=== PATIENT | male | born 1990 | race American Indian/Alaskan Native ===

== ENCOUNTER 2017-06-03 02:56 | Emergency (ER) | payer OTHER ==
[2017-06-03 03:50] VITALS: BP 119/70
[2017-06-03] MEDS ORDERED: DUONEB *Not for PRN Use IH ONE (03:50)
[2017-06-03] MEDS ORDERED: NACL 0.9% 1000 ML 1,000 ML IV ONE (04:17)
--- NOTE | 2017-06-03 04:34 | Emergency Department Report ---
ED Asthma HPI - General Chief Complaint: Adult Asthma Stated Complaint: ASTHMA Time Seen by Provider: 06/03/17 04:18 Source: patient Mode of arrival: Ambulatory Limitations: No Limitations - History of Present Illness Initial Comments: This is a 27-year-old male alert and oriented 3 nontoxic, well nourished in appearance, no acute signs of distress presents to the ED with c/o of wheezing x1 day. Patient has medical history of asthma. Patient stated all his medication is in the car where his car has been repossessed today. Patient denies any chest pain, shortness of breathe, fever, chills, headache, nausea, vomiting, calf pain, calf tenderness, cough. Patient denies smoking. Patient states his baseline peak flow was about 340. MD Complaint: wheezing, other (medication refill) -: Gradual, days(s) (1) Asthma History: childhood onset Severity: mild Context: none known Associated Symptoms: none - Related Data Current Asthma Therapy: inhaled bronchodilator, inhaled steroid Previous Rx's Medication Instructions Recorded Last Taken Type ALBUTEROL NEB's [Proventil 0.083% 2.5 mg IH Q4H PRN #1 box 04/20/17 Unknown Rx NEBS] Albuterol Sulfate [Ventolin Hfa] 1 puff IH Q4H PRN #1 hfa.aer.ad 04/20/17 Unknown Rx Fluticasone Propionate [Flovent 1 puff IH BID #1 disk.w.dev 04/20/17 Unknown Rx Diskus] Fluticasone/Salmeterol [Advair 1 each INHALATION BID #1 blst.w.dev 04/20/17 Unknown Rx 250-50 Diskus] predniSONE [Deltasone] 40 mg PO QDAY #10 tablet 04/20/17 Unknown Rx ALBUTEROL Inhaler [ProAir HFA 2 puff IH QID PRN #1 inhalation 06/03/17 Unknown Rx Inhaler] ALBUTEROL NEB's [Proventil 0.083% 2.5 mg IH TID PRN #30 neb 06/03/17 Unknown Rx NEBS] predniSONE [Deltasone] 40 mg PO QDAY #5 tab 06/03/17 Unknown Rx Allergies Allergy/AdvReac Type Severity Reaction Status Date / Time egg Allergy Shortness Verified 04/20/17 13:01 of Breath ED Review of Systems ROS: Stated complaint: ASTHMA Other details as noted in HPI Constitutional: denies: chills, fever Eyes: denies: eye pain, eye discharge, vision change ENT: denies: ear pain, throat pain Respiratory: wheezing. denies: cough, shortness of breath Cardiovascular: denies: chest pain, palpitations Endocrine: no symptoms reported Gastrointestinal: denies: abdominal pain, nausea, diarrhea Genitourinary: denies: urgency, dysuria Musculoskeletal: denies: back pain, joint swelling, arthralgia Skin: denies: rash, lesions Neurological: denies: headache, weakness, paresthesias Psychiatric: denies: anxiety, depression Hematological/Lymphatic: denies: easy bleeding, easy bruising ED Past Medical Hx - Past Medical History Hx Seizures: Yes Hx Asthma: Yes (intubated 07/06) - Surgical History Additional Surgical History: hernia repair - Social History Smoking Status: Never Smoker Substance Use Type: None - Medications Home Medications: Home Medications Medication Instructions Recorded Confirmed Last Taken Type ALBUTEROL NEB's [Proventil 0.083% 2.5 mg IH Q4H PRN #1 box 04/20/17 Unknown Rx NEBS] Albuterol Sulfate [Ventolin Hfa] 1 puff IH Q4H PRN #1 hfa.aer.ad 04/20/17 Unknown Rx Fluticasone Propionate [Flovent 1 puff IH BID #1 disk.w.dev 04/20/17 Unknown Rx Diskus] Fluticasone/Salmeterol [Advair 1 each INHALATION BID #1 blst.w.dev 04/20/17 Unknown Rx 250-50 Diskus] predniSONE [Deltasone] 40 mg PO QDAY #10 tablet 04/20/17 Unknown Rx ALBUTEROL Inhaler [ProAir HFA 2 puff IH QID PRN #1 inhalation 06/03/17 Unknown Rx Inhaler] ALBUTEROL NEB's [Proventil 0.083% 2.5 mg IH TID PRN #30 neb 06/03/17 Unknown Rx NEBS] predniSONE [Deltasone] 40 mg PO QDAY #5 tab 06/03/17 Unknown Rx ED Physical Exam - General Limitations: No Limitations General appearance: alert, in no apparent distress - Head Head exam: Present: atraumatic, normocephalic, normal inspection - Eye Eye exam: Present: normal appearance, PERRL, EOMI. Absent: scleral icterus, conjunctival injection, nystagmus, periorbital swelling, periorbital tenderness Pupils: Present: normal accommodation - ENT ENT exam: Present: normal exam, normal orophraynx, mucous membranes moist, TM's normal bilaterally, normal external ear exam - Neck Neck exam: Present: normal inspection, full ROM. Absent: tenderness, meningismus, lymphadenopathy, thyromegaly - Respiratory Respiratory exam: Present: normal lung sounds bilaterally. Absent: respiratory distress, wheezes, rales, rhonchi, stridor, chest wall tenderness, accessory muscle use, decreased breath sounds, prolonged expiratory - Cardiovascular Cardiovascular Exam: Present: regular rate, normal rhythm, normal heart sounds. Absent: bradycardia, tachycardia, irregular rhythm, systolic murmur, diastolic murmur, rubs, gallop - GI/Abdominal GI/Abdominal exam: Present: soft, normal bowel sounds. Absent: distended, tenderness, guarding, rebound, rigid, diminished bowel sounds - Rectal Rectal exam: Present: deferred - Extremities Exam Extremities exam: Present: normal inspection, full ROM, normal capillary refill. Absent: tenderness, pedal edema, joint swelling, calf tenderness - Back Exam Back exam: Present: normal inspection, full ROM. Absent: tenderness, CVA tenderness (R), CVA tenderness (L), muscle spasm, paraspinal tenderness, vertebral tenderness, rash noted - Neurological Exam Neurological exam: Present: alert, oriented X3, CN II-XII intact, normal gait, reflexes normal - Psychiatric Psychiatric exam: Present: normal affect, normal mood - Skin Skin exam: Present: warm, dry, intact, normal color. Absent: rash ED Course Vital Signs 06/03/17 03:44 Temperature 98.2 F Pulse Rate 90 Respiratory 20 Rate Blood Pressure 119/70 O2 Sat by Pulse 97 Oximetry - Reevaluation(s) Reevaluation #1: 06/03/17 04:45 Patient is speaking in full sentences with no signs of distress noted. ED Medical Decision Making - Medical Decision Making This is a 27-year-old a/ox3 that presents with medication refill and asthma exacerbation. Patient speaking in full sentences with no signs of distress. Patient received one nebulizer DuoNeb since arriving to the ED prior to intubated patient. Symptoms of wheezing has subsided upon auscultation during my visit. No visual retractions noted. Patient received Solu-Medrol 125 milligrams IV in the ED. patient is discharged with albuterol nebulizer, albuterol inhaler, and prednisone. He was instructed Follow-up with a primary care doctor in 3-5 days or if symptoms worsen and continue return to emergency room as soon as possible. At time time of discharge, the patient does not seem toxic or ill in appearance. No acute signs of distress noted. Patient agrees to discharge treatment plan of care. No further questions noted by the patient. Critical care attestation.: If time is entered above; I have spent that time in minutes in the direct care of this critically ill patient, excluding procedure time. ED Disposition Clinical Impression: Medication refill Asthma exacerbation Qualifiers: Asthma severity: mild Asthma persistence: unspecified Qualified Code(s): J45.901 - Unspecified asthma with (acute) exacerbation Disposition: DC- TO HOME OR SELFCARE Is pt being admited?: No Does the pt Need Aspirin: No Condition: Stable Instructions: Asthma (ED) Additional Instructions: Follow-up with a primary care doctor in 3-5 days or if symptoms worsen and continue return to emergency room as soon as possible. Prescriptions: ALBUTEROL Inhaler [ProAir HFA Inhaler] 2 puff IH QID PRN #1 inhalation PRN Reason: Shortness Of Breath ALBUTEROL NEB's [Proventil 0.083% NEBS] 2.5 mg IH TID PRN #30 neb PRN Reason: Wheezing predniSONE [Deltasone] 40 mg PO QDAY #5 tab Referrals: MATTHEW TODD MD [Primary Care Provider] - 3-5 Days [facility] [Outside] - 3-5 Days OSMANI CANTOR MD [Staff Physician] - 3-5 Days [facility] [Outside] - 3-5 Days Forms: Work/School Release Form(ED)
--- NOTE | 2017-06-03 04:46 | XRay Report ---
FINAL REPORT EXAM: XR CHEST ROUTINE 2V HISTORY: wheezing TECHNIQUE: PA and lateral chest radiographs PRIORS: None. FINDINGS: No mediastinal shift. Cardiac silhouette is not enlarged. No pneumothorax, effusion, or focal pulmonary opacity. No acute skeletal finding. IMPRESSION: No focal pulmonary opacity.
== END 2017-06-03 05:16 | disposition home or self-care (01) ==
LOC: ED 02:56
DX: J45.901 Unspecified asthma with (acute) exacerbation (principal); Z91.012 Allergy to eggs
CPT/HCPCS: 71020; 96361; 96374; 99283; J2930; J7030

== ENCOUNTER 2017-06-24 13:23 | Emergency (ER) | payer OTHER ==
[2017-06-24] MEDS ORDERED: PROVENTIL IH ONE (13:55)
[2017-06-24] MEDS ORDERED: ATROVENT IH ONE (13:55)
[2017-06-24] MEDS ORDERED: MAGNESIUM SULFATE 2GM/50ML 2 GM/50 ML BAG IV ONE (13:55)
--- NOTE | 2017-06-24 14:52 | XRay Report ---
Single view chest: Compared to 06/03/17. History: Shortness of breath. Findings: Normal cardiomediastinal silhouette the trachea is midline. No consolidation, pneumothorax or pleural effusion. Impression: No acute cardiopulmonary findings.
--- NOTE | 2017-06-24 15:06 | Emergency Department Report ---
ED Asthma HPI - General Chief Complaint: Adult Asthma Stated Complaint: ASTHMA ATTACK Time Seen by Provider: 06/24/17 13:55 Source: patient Mode of arrival: Ambulatory Limitations: No Limitations - History of Present Illness Initial Comments: 27-year-old male with a past medical history asthma with intubation in June 2016, and seizures presents to the hospital with shortness of breath and cough productive of yellow sputum since yesterday. No reports of fever. Patient presents tachypneic with some respiratory distress. 8/10 constant chest tightness reported with associated wheezing. - Related Data Previous Rx's Medication Instructions Recorded Last Taken Type Albuterol Sulfate [Ventolin Hfa] 1 puff IH Q4H PRN #1 hfa.aer.ad 04/20/17 Unknown Rx Fluticasone Propionate [Flovent 1 puff IH BID #1 disk.w.dev 04/20/17 Unknown Rx Diskus] Fluticasone/Salmeterol [Advair 1 each INHALATION BID #1 blst.w.dev 04/20/17 Unknown Rx 250-50 Diskus] ALBUTEROL NEB's [Proventil 0.083% 2.5 mg IH TID PRN #30 neb 06/03/17 Unknown Rx NEBS] predniSONE [Deltasone] 40 mg PO QDAY #5 tab 06/03/17 Unknown Rx ALBUTEROL Inhaler [ProAir HFA 2 puff IH QID PRN #1 inhalation 06/24/17 Unknown Rx Inhaler] ALBUTEROL NEB's [Proventil 0.083% 2.5 mg IH Q4H PRN #1 box 06/24/17 Unknown Rx NEBS] Azithromycin [Zithromax Z-DEYA] 1 dose PO DAILY 5 Days tab 06/24/17 Unknown Rx predniSONE [Deltasone] 40 mg PO QDAY 5 Days tablet 06/24/17 Unknown Rx Allergies Allergy/AdvReac Type Severity Reaction Status Date / Time egg Allergy Shortness Verified 04/20/17 13:01 of Breath ED Review of Systems ROS: Stated complaint: ASTHMA ATTACK Other details as noted in HPI Comment: All other systems reviewed and negative Other: Constitutional: No fevers chills Eyes: No eye pain visual changes ENT: No ear pain or throat pain Neck: Denies pain Respiratory: As per HPI Cardiovascular: Denies palpitations, syncope GI: Denies abdominal pain : Denies dysuria Musculoskeletal: Denies back pain Skin: Denies rash, lesions, erythema Neurologic: Denies headache, numbness, weakness Psychiatric: Denies suicidal ideation, hallucinations ED Past Medical Hx - Past Medical History Previous Medical History?: Yes Hx Seizures: Yes Hx Asthma: Yes (intubated 07/06) - Surgical History Past Surgical History?: Yes Additional Surgical History: hernia repair - Social History Smoking Status: Never Smoker Substance Use Type: None - Medications Home Medications: Home Medications Medication Instructions Recorded Confirmed Last Taken Type Albuterol Sulfate [Ventolin Hfa] 1 puff IH Q4H PRN #1 hfa.aer.ad 04/20/17 Unknown Rx Fluticasone Propionate [Flovent 1 puff IH BID #1 disk.w.dev 04/20/17 Unknown Rx Diskus] Fluticasone/Salmeterol [Advair 1 each INHALATION BID #1 blst.w.dev 04/20/17 Unknown Rx 250-50 Diskus] ALBUTEROL NEB's [Proventil 0.083% 2.5 mg IH TID PRN #30 neb 06/03/17 Unknown Rx NEBS] predniSONE [Deltasone] 40 mg PO QDAY #5 tab 06/03/17 Unknown Rx ALBUTEROL Inhaler [ProAir HFA 2 puff IH QID PRN #1 inhalation 06/24/17 Unknown Rx Inhaler] ALBUTEROL NEB's [Proventil 0.083% 2.5 mg IH Q4H PRN #1 box 06/24/17 Unknown Rx NEBS] Azithromycin [Zithromax Z-DEYA] 1 dose PO DAILY 5 Days tab 06/24/17 Unknown Rx predniSONE [Deltasone] 40 mg PO QDAY 5 Days tablet 06/24/17 Unknown Rx ED Physical Exam - General Limitations: No Limitations - Other Other exam information: General: No limitations, patient is alert in no acute distress Head exam: Atraumatic, normocephalic Eyes exam: Normal appearance ENT: Moist mucous membrane, normal oropharynx Neck exam: Normal inspection, full range of motion, no meningismus nontender Respiratory exam: Tachypnea, sensory muscle use, poor air movement with wheezing. Cardiovascular: Tachycardic regular rhythm Abdomen: Soft, nondistended, and nontender, with normal bowel sounds, no rebound, or guarding Extremity: Full range of motion normal inspection no deformity Back: Normal Inspection, full range of motion, no tenderness Neurologic: Alert, oriented x3, cranial nerves intact, no motor or sensory deficit Psychiatric: normal affect, normal mood Skin: Warm, dry, intact ED Course Vital Signs 06/24/17 06/24/17 06/24/17 13:41 14:07 14:24 Temperature 98.4 F Pulse Rate 125 H Pulse Rate [ 128 H 130 H Bilateral Upper Lobe] Respiratory 30 H Rate Respiratory 24 24 Rate [Bilateral Upper Lobe] Blood Pressure 125/70 O2 Sat by Pulse 93 Oximetry 06/24/17 06/24/17 16:16 16:26 Temperature Pulse Rate Pulse Rate [ 102 H 105 H Bilateral Upper Lobe] Respiratory Rate Respiratory 20 20 Rate [Bilateral Upper Lobe] Blood Pressure O2 Sat by Pulse Oximetry - Reevaluation(s) Reevaluation #1: 06/24/17 17:59 Patient feeling much better after second round and treatment. While he sleeping his pulse ox was 98% saturation on room air and heart rate 100. ED Medical Decision Making - Lab Data Result diagrams: 06/24/17 15:41 06/24/17 15:41 Lab Results 06/24/17 06/24/17 Range/Units 15:41 15:41 WBC 8.2 (4.5-11.0) K/mm3 RBC 5.45 H (3.65-5.03) M/mm3 Hgb 14.9 (11.8-15.2) gm/dl Hct 45.3 (35.5-45.6) % MCV 83 L (84-94) fl MCH 27 L (28-32) pg MCHC 33 (32-34) % RDW 15.2 (13.2-15.2) % Plt Count 243 (140-440) K/mm3 Lymph % (Auto) 9.1 L (13.4-35.0) % [place] % (Auto) 3.0 (0.0-7.3) % Eos % (Auto) 2.2 (0.0-4.3) % Baso % (Auto) 0.3 (0.0-1.8) % Lymph # 0.7 L (1.2-5.4) K/mm3 [place] # 0.2 (0.0-0.8) K/mm3 Eos # 0.2 (0.0-0.4) K/mm3 Baso # 0.0 (0.0-0.1) K/mm3 Seg Neutrophils % 85.4 H (40.0-70.0) % Seg Neutrophils # 7.0 (1.8-7.7) K/mm3 Sodium 143 (137-145) mmol/L Potassium 4.2 (3.6-5.0) mmol/L Chloride 100.8 (98-107) mmol/L Carbon Dioxide 26 (22-30) mmol/L Anion Gap 20 mmol/L BUN 11 (9-20) mg/dL Creatinine 1.0 (0.8-1.5) mg/dL Estimated GFR > 60 ml/min BUN/Creatinine Ratio 11 % Glucose 105 H (75-100) mg/dL Calcium 9.1 (8.4-10.2) mg/dL - Radiology Data Radiology results: report reviewed Chest x-ray read by radiologist: no acute findings - Medical Decision Making Patient feeling much better with ED treatment. We'll treat for acute bronchitis /asthma - Differential Diagnosis asthma, pneumonia, bronchitis Critical Care Time: No Critical care attestation.: If time is entered above; I have spent that time in minutes in the direct care of this critically ill patient, excluding procedure time. ED Disposition Clinical Impression: Acute asthmatic bronchitis Disposition: - TO HOME OR SELFCARE Is pt being admited?: No Does the pt Need Aspirin: No Condition: Stable Instructions: Acute Bronchitis (ED), Asthma (ED) Additional Instructions: Take the medication as prescribed. Use that good RX card to make your medication more affordable. Return is symptoms worsen Prescriptions: ALBUTEROL Inhaler [ProAir HFA Inhaler] 2 puff IH QID PRN #1 inhalation PRN Reason: Shortness Of Breath ALBUTEROL NEB's [Proventil 0.083% NEBS] 2.5 mg IH Q4H PRN #1 box PRN Reason: Wheezing Azithromycin [Zithromax Z-DEYA] 1 dose PO DAILY 5 Days tab predniSONE [Deltasone] 40 mg PO QDAY 5 Days tablet Referrals: [facility] [Provider Group] - 3-5 Days (Primary care doctor) OSMANI CHEN MD [Staff Physician] - 3-5 Days (primary care doctor) MICHELE ONTIVEROS MD [Staff Physician] - 3-5 Days (Lung specialist) Forms: Work/School Release Form(ED) Time of Disposition: 18:06
[2017-06-24 16:02] LABS: Basophils % (Auto) 0.3 % (0.0-1.8); Eosinophils # (Auto) 0.2 K/mm3 (0.0-0.4); Eosinophils % (Auto) 2.2 % (0.0-4.3); Hematocrit 45.3 % (35.5-45.6); Hemoglobin 14.9 gm/dl (11.8-15.2); Lymphocytes # (Auto) 0.7 K/mm3 (1.2-5.4); Lymphocytes % (Auto) 9.1 % (13.4-35.0); Mean Corpuscular HGB Conc 33 % (32-34); Mean Corpuscular Hemoglobin 27 pg (28-32); Mean Corpuscular Volume 83 fl (84-94); Monocytes # (Auto) 0.2 K/mm3 (0.0-0.8); Platelet Count 243 K/mm3 (140-440); Red Blood Count 5.45 M/mm3 (3.65-5.03); Red Cell Distribution Width 15.2 % (13.2-15.2)
[2017-06-24] MEDS ORDERED: XOPENEX IH ONE ×2 (16:07→16:08)
[2017-06-24 16:19] LABS: BUN/Creatinine Ratio 11; Blood Urea Nitrogen 11 mg/dL (9-20); Calcium 9.1 mg/dL (8.4-10.2); Hemolysis Index 5
[2017-06-24 18:28] VITALS: BP 123/55
== END 2017-06-24 18:28 | disposition home or self-care (01) ==
LOC: ED 13:23
DX: J20.9 Acute bronchitis, unspecified (principal); J45.909 Unspecified asthma, uncomplicated
CPT/HCPCS: 36415; 71045; 80048; 85025; 94640; 96365; 96375; 99284; J2930; J3475

== ENCOUNTER 2020-09-29 11:57 | Emergency (ER) | payer MEDICARE ==
[2020-09-29] MEDS ORDERED: IPRATROPIUM/ALBUTEROL SULFATE 3 ML AMPUL.NEB IH ONE ×2 (13:53→15:48)
[2020-09-29] MEDS ORDERED: methylPREDNISolone Sod Succinate 125 MG/2 ML INJ IM ONE (13:53)
--- NOTE | 2020-09-29 13:54 | Emergency Department Report ---
ED Asthma HPI - General Chief Complaint: Dyspnea/Respdistress Stated Complaint: ASTHMA Time Seen by Provider: 09/29/20 13:41 Source: patient Mode of arrival: Ambulatory Limitations: No Limitations - History of Present Illness Initial Comments: 30-year-old male with a past medical history of asthma presents to the ER today with complaints of flareup of his asthma. Patient states that his symptoms started about 2 days ago. He reports productive cough, wheezing, shortness of breath and chest tightness. Patient states that he has been out of his MDI for the past 2 days but he has been using his nebulizer treatments every 2 hours without much relief. He states that he uses as treatment today. He denies any runny nose, nasal congestion, fever or chills. He states that the last time he was hospitalized for his asthma was in 2019. He denies any other significant past history. MD Complaint: "asthma attack" -: Gradual (2 days ago ) - Related Data Previous Rx's Medication Instructions Recorded Last Taken Type Albuterol Sulfate [Ventolin Hfa] 1 puff IH Q4H PRN #1 hfa.aer.ad 04/20/17 Unknown Rx Fluticasone Propionate [Flovent 1 puff IH BID #1 disk.w.dev 04/20/17 Unknown Rx Diskus] Fluticasone/Salmeterol (Nf) 1 each INHALATION BID #1 blst.w.dev 04/20/17 Unknown Rx [Advair 250-50 Diskus] predniSONE [Deltasone] 40 mg PO QDAY #5 tab 06/03/17 Unknown Rx Azithromycin [Zithromax Z-DEYA] 1 dose PO DAILY 5 Days tab 06/24/17 Unknown Rx Benzonatate [Tessalon Perles] 100 mg PO Q8HR PRN #20 capsule 06/24/17 Unknown Rx predniSONE [Deltasone] 40 mg PO QDAY 5 Days tablet 06/24/17 Unknown Rx ALBUTEROL NEB's [Proventil 0.083% 2.5 mg IH TID PRN #30 neb 03/03/19 Unknown Rx NEBS] Fluticasone/Salmeterol [Advair 1 puff IH BID #1 disk.w.dev 03/03/19 Unknown Rx Diskus 250-50 mcg] ALBUTEROL NEB's [Proventil 0.083% 2.5 mg IH Q4H PRN #1 box 09/29/20 Unknown Rx NEBS] Albuterol Mdi (or & Nicu Only) 2 puff IH QID PRN #1 inhalation 09/29/20 Unknown Rx [ProAir HFA Inhaler] Montelukast [Singulair] 10 mg PO QPM #30 tablet 09/29/20 Unknown Rx predniSONE [Deltasone] 60 mg PO QDAY #15 tab 09/29/20 Unknown Rx Allergies Allergy/AdvReac Type Severity Reaction Status Date / Time egg Allergy Shortness Verified 04/20/17 13:01 of Breath ED Review of Systems ROS: Stated complaint: ASTHMA Other details as noted in HPI Comment: All other systems reviewed and negative Constitutional: denies: chills, fever Eyes: denies: eye pain, eye discharge, vision change ENT: denies: ear pain, throat pain Respiratory: cough, shortness of breath, SOB with exertion, wheezing Cardiovascular: chest pain (Chest tightness) Gastrointestinal: denies: abdominal pain, nausea, diarrhea, constipation, melena Genitourinary: denies: urgency, dysuria Musculoskeletal: denies: back pain, joint swelling, arthralgia Skin: denies: rash, lesions, change in color, change in hair/nails, pruritus Psychiatric: denies: anxiety, depression, auditory hallucinations, visual hallucinations, homicidal thoughts, suicidal thoughts Hematological/Lymphatic: denies: easy bleeding, easy bruising, swollen glands ED Past Medical Hx - Past Medical History Previous Medical History?: Yes Hx Seizures: Yes Hx Asthma: Yes (intubated 07/06) - Surgical History Past Surgical History?: Yes Additional Surgical History: hernia repair - Social History Smoking Status: Never Smoker Substance Use Type: None - Medications Home Medications: Home Medications Medication Instructions Recorded Confirmed Last Taken Type Albuterol Sulfate [Ventolin Hfa] 1 puff IH Q4H PRN #1 hfa.aer.ad 04/20/17 Unknown Rx Fluticasone Propionate [Flovent 1 puff IH BID #1 disk.w.dev 04/20/17 Unknown Rx Diskus] Fluticasone/Salmeterol (Nf) 1 each INHALATION BID #1 blst.w.dev 04/20/17 Unknown Rx [Advair 250-50 Diskus] predniSONE [Deltasone] 40 mg PO QDAY #5 tab 06/03/17 Unknown Rx Azithromycin [Zithromax Z-DEYA] 1 dose PO DAILY 5 Days tab 06/24/17 Unknown Rx Benzonatate [Tessalon Perles] 100 mg PO Q8HR PRN #20 capsule 06/24/17 Unknown Rx predniSONE [Deltasone] 40 mg PO QDAY 5 Days tablet 06/24/17 Unknown Rx ALBUTEROL NEB's [Proventil 0.083% 2.5 mg IH TID PRN #30 neb 03/03/19 Unknown Rx NEBS] Fluticasone/Salmeterol [Advair 1 puff IH BID #1 disk.w.dev 03/03/19 Unknown Rx Diskus 250-50 mcg] ALBUTEROL NEB's [Proventil 0.083% 2.5 mg IH Q4H PRN #1 box 09/29/20 Unknown Rx NEBS] Albuterol Mdi (or & Nicu Only) 2 puff IH QID PRN #1 inhalation 09/29/20 Unknown Rx [ProAir HFA Inhaler] Montelukast [Singulair] 10 mg PO QPM #30 tablet 09/29/20 Unknown Rx predniSONE [Deltasone] 60 mg PO QDAY #15 tab 09/29/20 Unknown Rx ED Physical Exam - General Limitations: No Limitations General appearance: alert, in distress (Mild respiratory distress) - Head Head exam: Present: atraumatic, normocephalic - Eye Eye exam: Present: normal appearance, PERRL, EOMI Pupils: Present: normal accommodation - ENT ENT exam: Present: normal exam, mucous membranes moist - Respiratory Respiratory exam: Present: respiratory distress (Mild), wheezes (Diffuse expiratory wheezing), decreased breath sounds. Absent: rales, rhonchi, stridor - Cardiovascular Cardiovascular Exam: Present: normal rhythm, tachycardia. Absent: systolic murmur - GI/Abdominal GI/Abdominal exam: Present: soft. Absent: distended, tenderness, guarding, rebound - Neurological Exam Neurological exam: Present: alert, oriented X3, normal gait. Absent: CN II-XII intact, motor sensory deficit - Psychiatric Psychiatric exam: Present: normal affect, normal mood - Skin Skin exam: Present: intact ED Course Vital Signs 09/29/20 09/29/20 09/29/20 12:52 14:45 16:20 Temperature 98.3 F Pulse Rate 115 H Pulse Rate [ 99 H 115 H Anterior Bilateral Throughout] Respiratory 22 Rate Respiratory 20 20 Rate [Anterior Bilateral Throughout] Blood Pressure 155/103 O2 Sat by Pulse 92 Oximetry - Reevaluation(s) Reevaluation #1: 09/29/20 15:49 Patient sitting up on the bed, drawing; he states that he does feel a little better after the first breathing treatment but he feels like he could benefit from another one. He does not appear to be in any acute distress at this time. Repeat lung exam - still wheezing but improving; environmental monitoring specialist shows a pulse ox of 96% on room air and a heart rate of 95. Repeat duoneb/mag Reevaluation #2: 09/29/20 17:28 Patient reports feeling much better after 2nd duoneb and IV mag; Patient not in any respiratory distress. He was observed wallking to bathroom in no distress. Repeat lung exam - clear to auscultation; His HR was 101 and Pulse 0x was 96 on environmental monitoring specialist. There is no indication at this time for admission. Discussed treatment plan with patient. He will be given a refill on his albuterol MDI and also his albuterol solution for his nebulizer machine and a prescription for some steroids. Patient presents understanding and agrees with plan. Patient stable at this time for d/c. ED Medical Decision Making - Lab Data Result diagrams: 09/29/20 14:06 09/29/20 14:06 Critical care attestation.: If time is entered above; I have spent that time in minutes in the direct care of this critically ill patient, excluding procedure time. ED Disposition Clinical Impression: Asthma exacerbation Disposition: DC-01 TO HOME OR SELFCARE Is pt being admited?: No Does the pt Need Aspirin: No Condition: Stable Instructions: Asthma, Adult, [id number] Additional Instructions: Use the albuterol MDI and the albuterol Neb as prescribed. Take the prednisone as prescribed. Take singular as prescribed. Follow up with PCP this week. Return to ED if symptoms changes or worsens in anyway. Prescriptions: predniSONE [Deltasone] 60 mg PO QDAY #15 tab Albuterol Mdi (or & Nicu Only) [ProAir HFA Inhaler] 2 puff IH QID PRN #1 inhalation PRN Reason: Shortness Of Breath ALBUTEROL NEB's [Proventil 0.083% NEBS] 2.5 mg IH Q4H PRN #1 box PRN Reason: Wheezing Montelukast [Singulair] 10 mg PO QPM #30 tablet Referrals: MELINA ALLEN MD [Staff Physician] - 3-5 Days Forms: Work/School Release Form(ED) Time of Disposition: 17:35
[2020-09-29] MEDS ORDERED: methylPREDNISolone Sod Succinate 125 MG/2 ML INJ IV ONE (13:55)
[2020-09-29 14:28] LABS: Basophils % (Auto) 0.3 % (0.0-1.8); Eosinophils # (Auto) 0.2 K/mm3 (0.0-0.4); Eosinophils % (Auto) 1.9 % (0.0-4.3); Hematocrit 46.9 % (35.5-45.6); Hemoglobin 15.4 gm/dl (11.8-15.2); Lymphocytes # (Auto) 2.3 K/mm3 (1.2-5.4); Lymphocytes % (Auto) 21.6 % (13.4-35.0); Mean Corpuscular HGB Conc 33 % (32-34); Mean Corpuscular Volume 85 fl (84-94); Monocytes # (Auto) 1.1 K/mm3 (0.0-0.8); Monocytes % (Auto) 10.5 % (0.0-7.3); Platelet Count 257 K/mm3 (140-440); Red Blood Count 5.54 M/mm3 (3.65-5.03); Red Cell Distribution Width 15.7 % (13.2-15.2)
[2020-09-29 14:47] LABS: Alanine Aminotransferase 54 units/L (7-56); Albumin 4.3 g/dL (3.9-5); BUN/Creatinine Ratio 15; Blood Urea Nitrogen 16 mg/dL (9-20); Calcium 9.3 mg/dL (8.4-10.2); Hemolysis Index 8
[2020-09-29] MEDS ORDERED: MAGNESIUM SULFATE 2 GM/50 ML BAG IV ONE (15:48)
[2020-09-29 18:06] VITALS: BP 167/88
== END 2020-09-29 18:06 | disposition home or self-care (01) ==
LOC: ED 11:57
DX: J45.901 Unspecified asthma with (acute) exacerbation (principal); Z91.012 Allergy to eggs; Z79.899 Other long term (current) drug therapy; Z86.69 Personal history of other diseases of the nervous system and sense organs; Z98.890 Other specified postprocedural states
CPT/HCPCS: 36415; 80053; 83735; 85025; 94640; 96365; 96375; 99284; J2930; J3475; 94644; 96366

== ENCOUNTER 2021-04-16 11:43 | Emergency (ER) | payer MEDICARE ==
[2021-04-16] MEDS ORDERED: dexAMETHasone 20 MG/5 ML VIAL IV ONE (12:02)
[2021-04-16] MEDS ORDERED: ALBUTEROL 2.5 MG/3 ML NEBU IH ONE (12:02)
[2021-04-16] MEDS ORDERED: IPRATROPIUM 0.02% NEBU 2.5 ML IH ONE (12:02)
--- NOTE | 2021-04-16 12:21 | Emergency Department Report ---
ED Asthma HPI - General Chief Complaint: Dyspnea/Respdistress Stated Complaint: ASTHMA Time Seen by Provider: 04/16/21 11:52 Source: EMS Mode of arrival: Stretcher Limitations: No Limitations - History of Present Illness Initial Comments: Patient is a 31-year-old F Greek male with a past medical history of asthma who states he has had increased shortness of breath and chest tightness for the past 3 days. Patient ran out of his albuterol rescue inhaler. Denies cough fevers chills nausea vomiting diarrhea. States has been no body aches. Patient believes that the change in weather has caused some of his asthma symptoms. Patient is not vaccinated against COVID-19 at this time. - Related Data Previous Rx's Medication Instructions Recorded Last Taken Type Albuterol Sulfate [Ventolin Hfa] 1 puff IH Q4H PRN #1 hfa.aer.ad 04/20/17 Unknown Rx Fluticasone Propionate [Flovent 1 puff IH BID #1 disk.w.dev 04/20/17 Unknown Rx Diskus] Fluticasone/Salmeterol (Nf) 1 each INHALATION BID #1 blst.w.dev 04/20/17 Unknown Rx [Advair 250-50 Diskus] predniSONE [Deltasone] 40 mg PO QDAY #5 tab 06/03/17 Unknown Rx Azithromycin [Zithromax Z-DEYA] 1 dose PO DAILY 5 Days tab 06/24/17 Unknown Rx Benzonatate [Tessalon Perles] 100 mg PO Q8HR PRN #20 capsule 06/24/17 Unknown Rx predniSONE [Deltasone] 40 mg PO QDAY 5 Days tablet 06/24/17 Unknown Rx ALBUTEROL NEB's [Proventil 0.083% 2.5 mg IH TID PRN #30 neb 03/03/19 Unknown Rx NEBS] Montelukast [Singulair] 10 mg PO QPM #30 tablet 09/29/20 Unknown Rx ALBUTEROL NEB's [Proventil 0.083% 2.5 mg IH Q4H PRN #1 box 04/16/21 Unknown Rx NEBS] Albuterol Mdi (or & Nicu Only) 2 puff IH QID PRN #1 inhalation 04/16/21 Unknown Rx [ProAir HFA Inhaler] Fluticasone/Salmeterol [Advair 1 puff IH BID #1 disk.w.dev 04/16/21 Unknown Rx Diskus 250-50 mcg] predniSONE [Deltasone] 60 mg PO QDAY #5 tab 04/16/21 Unknown Rx Allergies Allergy/AdvReac Type Severity Reaction Status Date / Time egg Allergy Shortness Verified 04/20/17 13:01 of Breath ED Review of Systems ROS: Stated complaint: ASTHMA Other details as noted in HPI Comment: All other systems reviewed and negative ED Past Medical Hx - Past Medical History Hx Seizures: Yes Hx Asthma: Yes (intubated 07/06) - Surgical History Additional Surgical History: hernia repair - Social History Smoking Status: Unknown if ever smoked - Medications Home Medications: Home Medications Medication Instructions Recorded Confirmed Last Taken Type Albuterol Sulfate [Ventolin Hfa] 1 puff IH Q4H PRN #1 hfa.aer.ad 04/20/17 04/16/21 Unknown Rx Fluticasone Propionate [Flovent 1 puff IH BID #1 disk.w.dev 04/20/17 04/16/21 Unknown Rx Diskus] Fluticasone/Salmeterol (Nf) 1 each INHALATION BID #1 blst.w.dev 04/20/17 04/16/21 Unknown Rx [Advair 250-50 Diskus] predniSONE [Deltasone] 40 mg PO QDAY #5 tab 06/03/17 04/16/21 Unknown Rx Azithromycin [Zithromax Z-DEYA] 1 dose PO DAILY 5 Days tab 06/24/17 04/16/21 Unknown Rx Benzonatate [Tessalon Perles] 100 mg PO Q8HR PRN #20 capsule 06/24/17 04/16/21 Unknown Rx predniSONE [Deltasone] 40 mg PO QDAY 5 Days tablet 06/24/17 04/16/21 Unknown Rx ALBUTEROL NEB's [Proventil 0.083% 2.5 mg IH TID PRN #30 neb 03/03/19 04/16/21 Unknown Rx NEBS] Montelukast [Singulair] 10 mg PO QPM #30 tablet 09/29/20 04/16/21 Unknown Rx ALBUTEROL NEB's [Proventil 0.083% 2.5 mg IH Q4H PRN #1 box 04/16/21 Unknown Rx NEBS] Albuterol Mdi (or & Nicu Only) 2 puff IH QID PRN #1 inhalation 04/16/21 Unknown Rx [ProAir HFA Inhaler] Fluticasone/Salmeterol [Advair 1 puff IH BID #1 disk.w.dev 04/16/21 Unknown Rx Diskus 250-50 mcg] predniSONE [Deltasone] 60 mg PO QDAY #5 tab 04/16/21 Unknown Rx ED Physical Exam - General Limitations: No Limitations General appearance: alert, in no apparent distress - Head Head exam: Present: atraumatic, normocephalic - Eye Eye exam: Present: normal appearance - ENT ENT exam: Present: mucous membranes moist - Neck Neck exam: Present: normal inspection - Respiratory Respiratory exam: Present: respiratory distress (Patient speaking in 3-5 word sentences. Patient is not tripoding but does appear to be breathing comfortably), wheezes. Absent: normal lung sounds bilaterally, rales - Cardiovascular Cardiovascular Exam: Present: normal rhythm, tachycardia. Absent: systolic murmur, diastolic murmur, rubs, gallop - GI/Abdominal GI/Abdominal exam: Present: soft, normal bowel sounds. Absent: distended, tenderness, guarding, rebound - Rectal Rectal exam: Present: deferred - Extremities Exam Extremities exam: Present: normal inspection - Back Exam Back exam: Present: normal inspection - Neurological Exam Neurological exam: Present: alert, oriented X3 - Psychiatric Psychiatric exam: Present: normal affect, normal mood - Skin Skin exam: Present: warm, dry, intact, normal color. Absent: rash ED Course Vital Signs 04/16/21 04/16/21 04/16/21 11:58 12:04 12:15 Temperature 97.8 F Pulse Rate 113 H 118 H 111 H Respiratory 18 21 Rate Blood Pressure 183/96 183/91 O2 Sat by Pulse 96 94 Oximetry 04/16/21 04/16/21 04/16/21 12:31 12:45 13:00 Temperature Pulse Rate 105 H 112 H 109 H Respiratory 26 H 20 18 Rate Blood Pressure 174/121 150/76 O2 Sat by Pulse 95 99 96 Oximetry 04/16/21 04/16/21 04/16/21 13:15 13:31 13:45 Temperature Pulse Rate 110 H 109 H 87 Respiratory 21 30 H 21 Rate Blood Pressure 149/92 150/76 134/91 O2 Sat by Pulse 100 100 100 Oximetry 04/16/21 04/16/21 04/16/21 14:01 14:15 14:24 Temperature Pulse Rate 95 H 93 H Respiratory 18 23 18 Rate Blood Pressure 148/92 146/81 O2 Sat by Pulse 94 86 96 Oximetry ED Medical Decision Making - Radiology Data [facility] [address] [place] [address] XRay Report Signed Patient: OSMANI BOOGIE MR#: [id number] : 1990 Acct:[id number] Age/Sex: 31 / M ADM Date: 04/16/21 Loc: ED Attending Dr: Ordering Physician: PUJA PIÑA MD Date of Service: 04/16/21 Procedure(s): XR chest 1V ap Accession Number(s): [id number] cc: PUJA PIÑA MD Fluoro Time In Minutes: CHEST 1 VIEW 04/16/2021 12:30 PM INDICATION / CLINICAL INFORMATION: dyspnea. COMPARISON: One view of the chest from 06/24/2017. FINDINGS: SUPPORT DEVICES: None. HEART / MEDIASTINUM: No significant abnormality. LUNGS / PLEURA: No significant pulmonary abnormality. No significant pleural effusion. No pneumothorax. ADDITIONAL FINDINGS: No significant additional findings. IMPRESSION: 1. No acute abnormality of the chest. Signer Name: Skinny Lyons MD Signed: 04/16/2021 12:38 PM Workstation Name: [id number] - Medical Decision Making Patient is a 31-year-old F Greek male who is presenting with asthma exac erbation. Patient ran out of both his rescue inhaler and his medication for his nebulizer machine. Patient given hour-long neb treatment and is feeling much improved. Able to speak in full sentences and wheezing has diminished. Patient have refills of his meds given and will be discharged home. Critical care attestation.: If time is entered above; I have spent that time in minutes in the direct care of this critically ill patient, excluding procedure time. ED Disposition Clinical Impression: Acute asthma exacerbation Qualifiers: Asthma severity: moderate Asthma persistence: unspecified Qualified Code(s): J45.901 - Unspecified asthma with (acute) exacerbation Disposition: HOME / SELF CARE / HOMELESS Is pt being admited?: No Does the pt Need Aspirin: No Condition: Stable Instructions: Asthma, Adult Prescriptions: Fluticasone/Salmeterol [Advair Diskus 250-50 mcg] 1 puff IH BID #1 disk.w.dev predniSONE [Deltasone] 60 mg PO QDAY #5 tab Albuterol Mdi (or & Nicu Only) [ProAir HFA Inhaler] 2 puff IH QID PRN #1 inhalation PRN Reason: Shortness Of Breath ALBUTEROL NEB's [Proventil 0.083% NEBS] 2.5 mg IH Q4H PRN #1 box PRN Reason: Wheezing Referrals: PRIMARY CARE, [Primary Care Provider] - 3-5 Days Time of Disposition: 14:33
--- NOTE | 2021-04-16 12:42 | XRay Report ---
CHEST 1 VIEW 04/16/2021 12:30 PM INDICATION / CLINICAL INFORMATION: dyspnea. COMPARISON: One view of the chest from 06/24/2017. FINDINGS: SUPPORT DEVICES: None. HEART / MEDIASTINUM: No significant abnormality. LUNGS / PLEURA: No significant pulmonary abnormality. No significant pleural effusion. No pneumothora x. ADDITIONAL FINDINGS: No significant additional findings. IMPRESSION: 1. No acute abnormality of the chest. Signer Name: Skinny Lyons MD Signed: 04/16/2021 12:38 PM Workstation Name: [id number]
[2021-04-16 14:25] VITALS: BP 146/81
== END 2021-04-16 15:54 | disposition home or self-care (01) ==
LOC: ED 11:43
DX: J45.901 Unspecified asthma with (acute) exacerbation (principal); R06.02 Shortness of breath; R07.89 Other chest pain; Z98.890 Other specified postprocedural states; Z91.012 Allergy to eggs
CPT/HCPCS: 71045; 94640; 96374; 99284; J1100

== ENCOUNTER 2021-09-21 16:12 | Emergency (ER) | payer MEDICARE ==
[2021-09-21] MEDS ORDERED: ALBUTEROL 2.5 MG/3 ML NEBU IH ONE (18:04)
[2021-09-21] MEDS ORDERED: predniSONE 20 MG TAB PO ONE (18:42)
--- NOTE | 2021-09-21 18:47 | Emergency Department Report ---
ED Asthma HPI - General Chief Complaint: Dyspnea/Respdistress Stated Complaint: ASTHMA/TIGHT CHEST Time Seen by Provider: 09/21/21 18:32 Source: patient Mode of arrival: Ambulatory Limitations: No Limitations - History of Present Illness Initial Comments: Patient is a 31-year-old male who presents emergency room complaints of an asthma exacerbation that began last night. He reports that he ran out of his albuterol inhaler and his nebulizer solution for his machine. He states that he currently takes Claritin for his allergies. He has associated shortness of breath, wheezing, chest tightness. He denies any cough, fever, chills, nausea, vomiting, diarrhea. He denies any known sick contacts or recent travel. 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 - Related Data Previous Rx's Medication Instructions Recorded Last Taken Type Albuterol Sulfate [Ventolin Hfa] 1 puff IH Q4H PRN #1 hfa.aer.ad 04/20/17 Unknown Rx Fluticasone Propionate [Flovent 1 puff IH BID #1 disk.w.dev 04/20/17 Unknown Rx Diskus] Fluticasone/Salmeterol (Nf) 1 each INHALATION BID #1 blst.w.dev 04/20/17 Unknown Rx [Advair 250-50 Diskus] predniSONE [Deltasone] 40 mg PO QDAY #5 tab 06/03/17 Unknown Rx Azithromycin [Zithromax Z-DEYA] 1 dose PO DAILY 5 Days tab 06/24/17 Unknown Rx Benzonatate [Tessalon Perles] 100 mg PO Q8HR PRN #20 capsule 06/24/17 Unknown Rx predniSONE [Deltasone] 40 mg PO QDAY 5 Days tablet 06/24/17 Unknown Rx ALBUTEROL NEB's [Proventil 0.083% 2.5 mg IH TID PRN #30 neb 03/03/19 Unknown Rx NEBS] Montelukast [Singulair] 10 mg PO QPM #30 tablet 09/29/20 Unknown Rx ALBUTEROL NEB's [Proventil 0.083% 2.5 mg IH Q4H PRN #1 box 04/16/21 Unknown Rx NEBS] Albuterol Mdi (or & Nicu Only) 2 puff IH QID PRN #1 inhalation 04/16/21 Unknown Rx [ProAir HFA Inhaler] Fluticasone/Salmeterol [Advair 1 puff IH BID #1 disk.w.dev 04/16/21 Unknown Rx Diskus 250-50 mcg] predniSONE [Deltasone] 60 mg PO QDAY #5 tab 04/16/21 Unknown Rx ALBUTEROL NEB's [Proventil 0.083% 2.5 mg IH TID PRN #1 box 09/21/21 Unknown Rx NEBS] Albuterol Sulfate [Proventil Hfa] 1 - 2 puff IH TID PRN #1 09/21/21 Unknown Rx predniSONE [Deltasone] 40 mg PO DAILY 5 Days #10 tab 09/21/21 Unknown Rx Allergies Allergy/AdvReac Type Severity Reaction Status Date / Time egg Allergy Shortness Verified 09/21/21 17:58 of Breath ED Review of Systems ROS: Stated complaint: ASTHMA/TIGHT CHEST Other details as noted in HPI Comment: All other systems reviewed and negative ED Past Medical Hx - Past Medical History Hx Seizures: Yes Hx Asthma: Yes (intubated 07/06) - Surgical History Additional Surgical History: hernia repair - Social History Smoking Status: Unknown if ever smoked - Medications Home Medications: Home Medications Medication Instructions Recorded Confirmed Last Taken Type Albuterol Sulfate [Ventolin Hfa] 1 puff IH Q4H PRN #1 hfa.aer.ad 04/20/17 04/16/21 Unknown Rx Fluticasone Propionate [Flovent 1 puff IH BID #1 disk.w.dev 04/20/17 04/16/21 Unknown Rx Diskus] Fluticasone/Salmeterol (Nf) 1 each INHALATION BID #1 blst.w.dev 04/20/17 04/16/21 Unknown Rx [Advair 250-50 Diskus] predniSONE [Deltasone] 40 mg PO QDAY #5 tab 06/03/17 04/16/21 Unknown Rx Azithromycin [Zithromax Z-DEYA] 1 dose PO DAILY 5 Days tab 06/24/17 04/16/21 Unknown Rx Benzonatate [Tessalon Perles] 100 mg PO Q8HR PRN #20 capsule 06/24/17 04/16/21 Unknown Rx predniSONE [Deltasone] 40 mg PO QDAY 5 Days tablet 06/24/17 04/16/21 Unknown Rx ALBUTEROL NEB's [Proventil 0.083% 2.5 mg IH TID PRN #30 neb 03/03/19 04/16/21 Unknown Rx NEBS] Montelukast [Singulair] 10 mg PO QPM #30 tablet 09/29/20 04/16/21 Unknown Rx ALBUTEROL NEB's [Proventil 0.083% 2.5 mg IH Q4H PRN #1 box 04/16/21 Unknown Rx NEBS] Albuterol Mdi (or & Nicu Only) 2 puff IH QID PRN #1 inhalation 04/16/21 Unknown Rx [ProAir HFA Inhaler] Fluticasone/Salmeterol [Advair 1 puff IH BID #1 disk.w.dev 04/16/21 Unknown Rx Diskus 250-50 mcg] predniSONE [Deltasone] 60 mg PO QDAY #5 tab 04/16/21 Unknown Rx ALBUTEROL NEB's [Proventil 0.083% 2.5 mg IH TID PRN #1 box 09/21/21 Unknown Rx NEBS] Albuterol Sulfate [Proventil Hfa] 1 - 2 puff IH TID PRN #1 09/21/21 Unknown Rx predniSONE [Deltasone] 40 mg PO DAILY 5 Days #10 tab 09/21/21 Unknown Rx ED Physical Exam - General Limitations: No Limitations General appearance: alert, in no apparent distress - Head Head exam: Present: atraumatic, normocephalic - Eye Eye exam: Present: normal appearance - ENT ENT exam: Present: mucous membranes moist - Respiratory Respiratory exam: Present: normal lung sounds bilaterally, other (lung exam performed after neb treatment). Absent: respiratory distress, wheezes, rales, rhonchi, stridor, chest wall tenderness, accessory muscle use, decreased breath sounds, prolonged expiratory - Cardiovascular Cardiovascular Exam: Present: regular rate, normal rhythm, normal heart sounds. Absent: systolic murmur, diastolic murmur, rubs, gallop - Neurological Exam Neurological exam: Present: alert, oriented X3 - Psychiatric Psychiatric exam: Present: normal affect, normal mood - Skin Skin exam: Present: warm, dry, intact ED Course Vital Signs 09/21/21 09/21/21 09/21/21 17:55 18:08 18:55 Temperature 98.6 F 98.2 F Pulse Rate 93 H 94 H Pulse Rate [ 91 H Anterior Bilateral Throughout] Respiratory 20 12 Rate Respiratory 20 Rate [Anterior Bilateral Throughout] Blood Pressure 160/101 Blood Pressure 187/108 [Right] O2 Sat by Pulse 99 99 Oximetry ED Medical Decision Making - Lab Data Vital Signs 09/21/21 09/21/21 09/21/21 17:55 18:08 18:55 Temperature 98.6 F 98.2 F Pulse Rate 93 H 94 H Pulse Rate [ 91 H Anterior Bilateral Throughout] Respiratory 20 12 Rate Respiratory 20 Rate [Anterior Bilateral Throughout] Blood Pressure 160/101 Blood Pressure 187/108 [Right] O2 Sat by Pulse 99 99 Oximetry - Medical Decision Making Patient is a 31-year-old male who presents emergency room complaints of an asthma exacerbation that began last night. He reports that he ran out of his albuterol inhaler and his nebulizer solution for his machine. He states that he currently takes Claritin for his allergies. He has associated shortness of breath, wheezing, chest tightness. He denies any cough, fever, chills, nausea, vomiting, diarrhea. He denies any known sick contacts or recent travel. 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 VSS. no hypoxia. pt given 5 mg albuterol by nursing staff prior to my examination and on exam his breath sounds are clear, no w/r/r. no clinical signs of bacterial PNA. pt given oral prednisone. given prescription for medication. advised pt Please take medication as prescribed. Follow-up with your primary care doctor. Return to emergency room for any new or worsening symptoms. Critical care attestation.: If time is entered above; I have spent that time in minutes in the direct care of this critically ill patient, excluding procedure time. ED Disposition Clinical Impression: Asthma exacerbation Qualifiers: Asthma severity: unspecified severity Asthma persistence: unspecified Qualified Code(s): J45.901 - Unspecified asthma with (acute) exacerbation Disposition: 01 HOME / SELF CARE / HOMELESS Is pt being admited?: No Does the pt Need Aspirin: No Condition: Stable Instructions: Asthma, Adult Additional Instructions: Please take medication as prescribed. Follow-up with your primary care doctor. Return to emergency room for any new or worsening symptoms. Prescriptions: predniSONE [Deltasone] 40 mg PO DAILY 5 Days #10 tab ALBUTEROL NEB's [Proventil 0.083% NEBS] 2.5 mg IH TID PRN #1 box PRN Reason: Wheezing Albuterol Sulfate [Proventil Hfa] 1 - 2 puff IH TID PRN #1 PRN Reason: wheezing, shortness of breath Referrals: MELINA ALLEN MD [Staff Physician] - 3-5 Days [facility] [Provider Group] - 3-5 Days Time of Disposition: 18:45 Print Language: SYRIAC
[2021-09-21 18:56] VITALS: BP 187/108
== END 2021-09-21 18:55 | disposition home or self-care (01) ==
LOC: ED 16:12
DX: J45.901 Unspecified asthma with (acute) exacerbation (principal); R56.9 Unspecified convulsions; Z91.012 Allergy to eggs; Z98.890 Other specified postprocedural states; Z79.899 Other long term (current) drug therapy
CPT/HCPCS: 94640; 94644; 99282